=== PATIENT | female | born 1995 | race Two or more races ===

== ENCOUNTER 2016-09-05 17:28 | Emergency (ER) | payer BC ==
[2016-09-05 16:44] LABS: URINE APPEARANCE CLEAR; URINE BILIRUBIN NEG (NEG); URINE BLOOD NEG (NEG); URINE COLOR ORANGE; URINE GLUCOSE 50 MG/DL (NORM); URINE KETONE TRACE (NEG); URINE LEUKOCYTE ESTERASE 2+ (NEG); URINE NITRATE POS (NEG); URINE PROTEIN 2+ (NEG); URINE SOURCE CLEAN CATCH; URINE SPECIFIC GRAVITY 1.015 (1.003-1.035); URINE UROBILINOGEN >=8.0 MG/DL (NORM)
[2016-09-05 16:49] LABS: MICRO INDICATED? YES
[2016-09-05 16:55] LABS: CULTURE INDICATED? YES; URINE BACTERIA 1+ (NEG); URINE RBC NEG /[HPF] (0-2); URINE SQUAMOUS EPITHELIAL CELL MODERATE /[HPF]
[~2016-09-05 17:28] MED LIST: BACTRIM DS TABL1 TA1 PO; BACTRIM DS TABL1 TA2 PO; BENTYL10 MG PO; BENTYL20 M1 PO; BENTYL20 MG PO; CIPRO PO; ELIMITE60 GM TOP; FLAGYL PO; IBUPROFEN800 MG PO; MACROBID100 M1 DOB; MONODOX100 MG PO; NAPROSYN500 MG PO; NO MEDICATIONS; PEPTO-BISMOL262 M1 PO; PHENERGAN PO; PHENERGAN25 M1 PO; PYRIDIUM100 MG PO; ROBAXIN500 MG PO; TYLENOL #3 PO; VICODIN 5/1 TAB 5/50 PO
== END 2016-09-05 17:52 | disposition home or self-care (01) ==
LOC: SED 17:28
PROVIDERS: Emergency Medicine
DX: N10 Acute pyelonephritis (principal); F17.210 Nicotine dependence, cigarettes, uncomplicated
CPT/HCPCS: 81003; 84703; 87086; 99283

== ENCOUNTER 2016-11-18 12:11 | Emergency (ER) | payer BC ==
--- NOTE | ~2016-11-18 | CT4 ---
[facility] A Service of [facility] & [facility] RADIOLOGY TEXT RESULTS PATIENT: PAYTON PADILLA LOCATION: SED : [birth year] UNIT #: [id number] AGE: [address]: JEFFERY GARLAND SEX: F ORDER DR: [id number] [address] [address] [id number] E MR#: [id number] Acc #: [id number] NAME: PAYTON PADILLA : 1995 SEX: F STUDY DATE/TIME: 11/18/2016 14:29 UNIT: SED ROOM: STUDY DESCRIPTION: CT Abd and Pelv Wo Cont Attending Physician: Jeffery Garland Ordering Physician: Jeffery Garland Primary Care Physician: Primary Care Physician No MEDICAL IMAGING REPORT This report is preliminary unless electronic signature is present. EXAM CT abdomen and pelvis without IV contrast COMPARISON December 26, 2014; January 01, 2014 and October 19, 2012. INDICATION 21-year-old female with left lower quadrant abdominal pain for 3 weeks. Frequent urinary tract infections. This CT exam was performed with one or more of the following radiation dose reduction techniques: automatic exposure control, adjustment of mA and/or kV according to patient size, and iterative reconstruction. FINDINGS Axial CT imaging of the abdomen and pelvis was performed without IV contrast. Lack of IV contrast limits evaluation of adenopathy, vasculature and viscera. Coronal and sagittal reformats were constructed. Small posterior disc protrusion L5-S1. No acute fractures or suspicious osseous lesions. Unenhanced liver, gallbladder, pancreas, spleen, adrenal glands and kidneys are unremarkable. No hydronephrosis or hydroureter. No evidence of renal or ureteral calculus. Urinary bladder and uterus are unremarkable. There is a large stool burden in the rectum with large stool ball measuring approximately 5.9 cm x 5.8 cm transverse. Simple cyst in the right ovary measuring up to 1.1 cm. Simple cyst in the left ovary measuring up to 1.3 cm. Trace free fluid in the pelvis, possibly physiologic. No pneumoperitoneum. Abdominal aorta is normal in caliber. No definite adenopathy. No evidence of bowel obstruction. No evidence of acute appendicitis. IMPRESSION 1. No acute abnormality abdomen, pelvis or imaged lower chest. STS. [facility] A Service of [facility] & [facility] RADIOLOGY TEXT RESULTS PATIENT: PAYTON PADILLA LOCATION: SED : [birth year] UNIT #: [id number] AGE: [address]: JEFFERY GARLAND SEX: F ORDER DR: 2. There is a large rectal stool burden. 3. There are simple cysts in both ovaries. 4. Small amount pelvic free fluid, possibly physiologic. 5. Very small posterior disc protrusion L5-S1. Dictated by... Ravinder Bolanos M.D. THIS IS AN ELECTRONICALLY VERIFIED REPORT Ravinder Bolanos M.D. at 11/25/2016 12:12 PM GASPER/ki TD: 11/18/2016 18:15 JOB #: [id number] MEDICAL IMAGING REPORT Page 1 of 1
[2016-11-18 12:32] LABS: URINE SOURCE CLEAN CATCH
[2016-11-18 12:37] LABS: URINE APPEARANCE CLOUDY; URINE BLOOD 3+ (NEG); URINE COLOR BROWN; URINE GLUCOSE NEG (NORM); URINE KETONE NEG (NEG); URINE LEUKOCYTE ESTERASE 3+ (NEG); URINE NITRATE POS (NEG); URINE PH 6.5 (5-8); URINE PROTEIN 2+ (NEG); URINE SPECIFIC GRAVITY 1.015 (1.003-1.035)
[2016-11-18 12:39] LABS: MICRO INDICATED? YES
[2016-11-18 12:41] LABS: URINE BILIRUBIN NEG (NEG)
[2016-11-18 12:42] LABS: URINE RBC INNUM /[HPF] (0-2)
[2016-11-18 12:43] LABS: URINE WBC 100-200 /[HPF] (0-5)
[2016-11-18 12:44] LABS: CULTURE INDICATED? YES; URINE BACTERIA 1+ (NEG); URINE SQUAMOUS EPITHELIAL CELL OCCAS /[HPF]
[2016-11-20 15:44] LABS: CHLAMYDIA TRACH Not Detected (Not Detected); N GONOR Not Detected (Not Detected)
== END 2016-11-18 16:03 | disposition home or self-care (01) ==
LOC: SED 12:11
PROVIDERS: Nurse Practitioner
DX: N76.0 Acute vaginitis (principal); N83.209 Unspecified ovarian cyst, unspecified side; F17.210 Nicotine dependence, cigarettes, uncomplicated
CPT/HCPCS: 74176; 81003; 84703; 87086; 87210; 87491; 87591; 87808; 87905; 96372; 99284; J0696; J1885

== ENCOUNTER 2016-12-10 16:59 | Emergency (ER) | payer BC ==
--- NOTE | ~2016-12-10 | CR72 ---
[facility] A Service of [facility] & [facility] RADIOLOGY TEXT RESULTS PATIENT: PAYTON PADILLA LOCATION: [facility] : [birth year] UNIT #: [id number] AGE: [address]: Tra Meza MD SEX: F ORDER DR: [id number] [facility] [address] [place], [place] [address] [id number] E MR#: [id number] Acc #: [id number] NAME: PAYTON PADILLA : 1995 SEX: F STUDY DATE/TIME: 12/10/2016 18:38 UNIT: [facility] ROOM: STUDY DESCRIPTION: CR Chest Single View Portable Attending Physician: Silvestre Meza M.D. Ordering Physician: Ed Chance Mao M.D. Primary Care Physician: No Primary Care Physician MEDICAL IMAGING REPORT This report is preliminary unless electronic signature is present EXAM Portable chest. INDICATION Chest pain, shortness of breath and dizziness today. COMPARISON Comparison is made with 05/05/2012. FINDINGS The lungs are well expanded and clear. Heart size normal. Visualized osseous structures are unremarkable. IMPRESSION Negative chest. Dictated by... Magan Oconnell M.D. THIS IS AN ELECTRONICALLY VERIFIED REPORT Magan Oconnell M.D. at 12/12/2016 3:24 PM EMI/ted TD: 12/11/2016 01:25 JOB #: [id number] MEDICAL IMAGING REPORT Page 1 of 1 COPY
--- NOTE | ~2016-12-10 | EKG ---
PATIENT: PAYTON PADILLA UNIT #: [id number] Ventricular Rate: 58 BPM Atrial Rate: 58 BPM P-R Interval: 166 ms QRS Duration: 98 ms Q-T Interval: 426 ms QTC Calculation(Bezet): 418 ms P [place]: 42 degrees Calculated R [place]: 91 degrees Calculated T [place]: 59 degrees Diagnosis Line: Sinus bradycardia Diagnosis Line: Rightward axis Diagnosis Line: RSR' or QR pattern in V1 suggests right Diagnosis Line: ventricular conduction delay Diagnosis Line: Nonspecific ST and T wave abnormality Diagnosis Line: Abnormal ECG Diagnosis Line: When compared with ECG of 10-DEC-2016 18:41, Diagnosis Line: (unconfirmed) Diagnosis Line: No significant change was found Diagnosis Line: Confirmed by MAIRA FOFANA MD ([id number]) on Diagnosis Line: 12/10/2016 10:56:20 PM INTERPRETING MD: KARRIE
[2016-12-10 18:50] LABS: BASOPHIL# 0.1 X10e3 (0-0.3); BASOPHIL% 0.6 % (0-2.5); EOSINOPHIL# 0.1 X10e3 (0-0.7); EOSINOPHIL% 0.7 % (0.0-7.0); HEMOGLOBIN 13.4 gm/dL (12.0-16.0); LYMPHOCYTE# 3.7 X10e3 (1.0-3.5); MEAN CELL VOLUME 92.6 FL (83-96); MEAN CORPUSCULAR HEMOGLOBIN 30.3 PG (28-34); MEAN CORPUSCULAR HGB CONC 32.7 g/dL (30-36); MEAN PLATELET VOLUME 8.2 FL (6.5-11.5); MONOCYTE# 0.9 X10e3 (0-1.0); MONOCYTE% 8.4 % (3.0-12.0); NEUTROPHIL# 6.4 X10e3 (1.5-7.1); NEUTROPHIL% 57.3 % (40-75); PLATELET COUNT 286 X10e3 (140-420); RED BLOOD COUNT 4.42 X10e (3.90-5.30); RED CELL DISTRIBUTION WIDTH 13.9 % (11.0-15.5); WHITE BLOOD COUNT 11.2 X10e3 (4.0-10.5)
[2016-12-10 18:51] LABS: DIFF IND NO
[2016-12-10 18:56] LABS: POC - CKMB <1.0 ng/mL (0.0-7.9); POC - TROPONIN <0.05 ng/mL (<=0.05)
[2016-12-10 19:10] LABS: INR 1.1
[2016-12-10 19:14] LABS: ALBUMIN SERUM 4.5 g/dL (3.5-5.0); BILIRUBIN, DIRECT 0.2 mg/dL (0.0-0.2); BILIRUBIN,TOTAL 2.2 mg/dL (0.2-2.0); CALCIUM SERUM 9.3 mg/dL (8.4-10.2); CREATININE SERUM 0.7 mg/dL (0.6-1.4); GLOM FILT RATE Estimated 122.1 mL/min (>60); POTASSIUM 3.3 mmol/L (3.5-5.1); PROTEIN TOTAL SERUM 7.1 g/dL (6.0-8.3)
== END 2016-12-10 19:45 | disposition home or self-care (01) ==
LOC: CED 16:59
PROVIDERS: Emergency Medicine
DX: J20.9 Acute bronchitis, unspecified (principal); F17.210 Nicotine dependence, cigarettes, uncomplicated
CPT/HCPCS: 36415; 71010; 80048; 80076; 82553; 84484; 85025; 85379; 85610; 85730; 93005; 94644; 99285; J1885

== ENCOUNTER 2016-12-17 13:13 | Emergency (ER) | payer BC ==
[2016-12-17 13:47] LABS: URINE SOURCE CLEAN CATCH
[2016-12-17 14:05] LABS: URINE APPEARANCE CLOUDY; URINE BILIRUBIN NEG (NEG); URINE BLOOD NEG (NEG); URINE COLOR DK YELLOW; URINE GLUCOSE NEG (NEG); URINE KETONE NEG (NEG); URINE LEUKOCYTE ESTERASE TRACE (NEG); URINE NITRATE POS (NEG); URINE PROTEIN TRACE (NEG); URINE SPECIFIC GRAVITY 1.025 (1.003-1.035)
[2016-12-17 14:08] LABS: CULTURE INDICATED? YES; URBCS1 AUWI 0-2 /[HPF] (0-2); URINE BACTERIA AUWI 4+ (NEGATIVE); URINE SQUAMOUS EPITHELIAL CELL MOD /[HPF]
[2016-12-17 14:10] LABS: BASOPHIL% 0.5 % (0-2.5); EOSINOPHIL% 0.7 % (0.0-7.0); HEMATOCRIT 39.8 % (35.0-45.0); HEMOGLOBIN 12.8 gm/dL (12.0-16.0); LYMPHOCYTE# 2.5 X10e3 (1.0-3.5); LYMPHOCYTE% 40.9 % (17.0-45.0); MEAN CELL VOLUME 92.9 FL (83-96); MEAN CORPUSCULAR HGB CONC 32.3 g/dL (30-36); MEAN PLATELET VOLUME 8.2 FL (6.5-11.5); MONOCYTE# 0.5 X10e3 (0-1.0); MONOCYTE% 8.7 % (3.0-12.0); NEUTROPHIL% 49.2 % (40-75); PLATELET COUNT 271 X10e3 (140-420); RED BLOOD COUNT 4.28 X10e (3.90-5.30); RED CELL DISTRIBUTION WIDTH 14.3 % (11.0-15.5); WHITE BLOOD COUNT 6.1 X10e3 (4.0-10.5)
[2016-12-17 14:20] LABS: DIFF IND NO
[2016-12-17 14:37] LABS: ALBUMIN SERUM 4.1 g/dL (3.5-5.0); BILIRUBIN,TOTAL 1.3 mg/dL (0.2-2.0); CALCIUM SERUM 8.8 mg/dL (8.4-10.2); CREATININE SERUM 0.5 mg/dL (0.6-1.4); GLOM FILT RATE Estimated 136.4 mL/min (>60); POTASSIUM 3.4 mmol/L (3.5-5.1); PROTEIN TOTAL SERUM 6.6 g/dL (6.0-8.3)
== END 2016-12-17 16:00 | disposition home or self-care (01) ==
LOC: CFTX 13:13 → CED 13:13 → CFTX 14:03
PROVIDERS: Nurse Practitioner
DX: N39.0 Urinary tract infection, site not specified (principal); F17.200 Nicotine dependence, unspecified, uncomplicated
CPT/HCPCS: 36415; 80053; 81003; 83690; 84703; 85025; 87086; 87088; 87186; 96361; 96374; 96375; 99284; J1885; J2405

== ENCOUNTER 2017-02-25 09:16 | Emergency (ER) | payer BC ==
--- NOTE | ~2017-02-25 | CT4 ---
[facility] A Service [facility] RADIOLOGY TEXT RESULTS PATIENT: PAYTON PADILLA LOCATION: SED : [birth year] UNIT #: [id number] AGE: [address]: Will Gray MD SEX: F ORDER DR: [id number] [address] [address] [id number] E MR#: [id number] Acc #: [id number] NAME: PAYTON PADILLA : 1995 SEX: F STUDY DATE/TIME: 02/25/2017 12:14 UNIT: SED ROOM: STUDY DESCRIPTION: CT Abd and Pelv Wo Cont Attending Physician: Will Gray M.D. Ordering Physician: Will Gray M.D. Primary Care Physician: No Primary Care Physician MEDICAL IMAGING REPORT This report is preliminary unless electronic signature is present. EXAM CT abdomen and pelvis without contrast HISTORY Cough, sore throat, nausea and vomiting for 3 days. Abdominal pain, left side for 3 days. Body aches and chills. COMPARISON 11/18/2016. TECHNIQUE Axial 5 mm images were obtained through the abdomen and pelvis without IV or oral contrast. This CT exam was performed with one or more of the following radiation dose reduction techniques: automatic control, adjustment of mA and/or kV according to patient size, and iterative reconstruction. FINDINGS Lung bases are clear. The liver, gallbladder, spleen, pancreas, adrenal glands and kidneys are normal. There is no hydronephrosis. No urinary stones. The aorta is normal in size. There is no adenopathy. The bowel is normal in appearance. The appendix is normal. Uterus and adnexal regions are normal. There may be minimal free fluid in the pelvis. Bladder is normal. Bones are unremarkable. IMPRESSION 1. The study is normal. There is no evidence of urinary stones and the appendix is normal. [facility] A Service [facility] RADIOLOGY TEXT RESULTS PATIENT: PAYTON PADILLA LOCATION: SED : [birth year] UNIT #: [id number] AGE: [address]: Will Gray MD SEX: F ORDER DR: Dictated by... Will Chacko M.D. THIS IS AN ELECTRONICALLY VERIFIED REPORT Will Chacko M.D. at 02/25/2017 7:41 PM RODDY/rnray TD: 02/25/2017 19:17 JOB #: [id number] MEDICAL IMAGING REPORT Page 1 of 1
[2017-02-25 09:37] LABS: URINE SOURCE CLEAN CATCH
[2017-02-25 09:40] LABS: URINE APPEARANCE CLEAR; URINE BILIRUBIN NEG (NEG); URINE BLOOD NEG (NEG); URINE COLOR YELLOW; URINE GLUCOSE NEG (NORM); URINE KETONE NEG (NEG); URINE LEUKOCYTE ESTERASE NEG (NEG); URINE NITRATE NEG (NEG); URINE PH 7.5 (5-8); URINE PROTEIN NEG (NEG); URINE UROBILINOGEN 0.2 MG/DL (NORM)
[2017-02-25 10:02] LABS: MICRO INDICATED? NO
[2017-02-25 10:24] LABS: BASOPHIL% 0.3 % (0-2.5); EOSINOPHIL# 0.1 X10e3 (0-0.7); EOSINOPHIL% 0.5 % (0.0-7.0); HEMATOCRIT 39.6 % (35.0-45.0); HEMOGLOBIN 13.2 gm/dL (12.0-16.0); LYMPHOCYTE# 0.8 X10e3 (1.0-3.5); LYMPHOCYTE% 7.4 % (17.0-45.0); MEAN CELL VOLUME 91.4 FL (83-96); MEAN CORPUSCULAR HEMOGLOBIN 30.6 PG (28-34); MEAN CORPUSCULAR HGB CONC 33.4 g/dL (30-36); MEAN PLATELET VOLUME 8.4 FL (6.5-11.5); MONOCYTE# 0.7 X10e3 (0-1.0); MONOCYTE% 6.6 % (3.0-12.0); NEUTROPHIL# 8.7 X10e3 (1.5-7.1); NEUTROPHIL% 85.2 % (40-75); PLATELET COUNT 243 X10e3 (140-420); RED BLOOD COUNT 4.33 X10e (3.90-5.30); RED CELL DISTRIBUTION WIDTH 13.6 % (11.0-15.5); WHITE BLOOD COUNT 10.3 X10e3 (4.0-10.5)
[2017-02-25 11:06] LABS: DIFF IND NO
[2017-02-25 11:17] LABS: ALBUMIN SERUM 4.3 g/dL (3.5-5.0); BILIRUBIN,TOTAL 1.8 mg/dL (0.2-2.0); CALCIUM SERUM 8.7 mg/dL (8.4-10.2); CREATININE SERUM 0.5 mg/dL (0.6-1.4); GLOM FILT RATE Estimated 136.4 mL/min (>60); POTASSIUM 3.4 mmol/L (3.5-5.1); PROTEIN TOTAL SERUM 6.6 g/dL (6.0-8.3)
== END 2017-02-25 13:16 | disposition home or self-care (01) ==
LOC: SED 09:16
PROVIDERS: Emergency Medicine
DX: J20.9 Acute bronchitis, unspecified (principal); A08.4 Viral intestinal infection, unspecified; F17.200 Nicotine dependence, unspecified, uncomplicated
CPT/HCPCS: 36415; 74176; 80053; 81003; 83690; 84703; 85025; 87651; 94640; 96361; 96374; 96375; 99283; J1885; J2405